=== PATIENT | male | born 1965 | race Native Hawaiian/Other Pacific Islander ===

== ENCOUNTER 2017-04-10 10:08 | Observation (INO) | payer OTHER ==
[~2017-04-10] VITALS: Ht 167.6 cm; Wt 103.5 kg
[~2017-04-10 10:08] MED LIST: ASA LO-DOSE81 MG PO; GABA300C2 PO; LISI20TA11 PO; MELOXICAM15 MG PO; NEXIUM40 MG PO; SIMV20TA2 PO
[2017-04-10 12:04] LABS: PLATELET COUNT 185 K/uL (142-355)
[2017-04-10 12:12] LABS: PARTIAL THROMBOPLASTIN TIME 24.1 SECONDS (24.5-33.6)
[2017-04-10 12:22] LABS: SODIUM 136 mmol/L (136-145)
[2017-04-10 13:22] VITALS: BP 141/88; TEMP 97; Ht 167.6 cm; Wt 103.5 kg
[2017-04-10 16:12] VITALS: BP 125/68; TEMP 97.8
[2017-04-10] MEDS ORDERED: DOXYCYC MONO100 MG PO (17:12)
[2017-04-10 20:00] VITALS: BP 116/71; TEMP 98.9
[2017-04-11] VITALS: BP 113/69; TEMP 97.7
[2017-04-11 04:00] VITALS: BP 120/72; TEMP 98.6
[2017-04-11 04:43] LABS: PLATELET COUNT 204 K/uL (142-355)
[2017-04-11 05:00] LABS: POTASSIUM 4.3 mmol/L (3.6-5.2); SODIUM 134 mmol/L (136-145)
[2017-04-11 08:00] VITALS: BP 129/74
--- NOTE | 2017-04-11 13:45 | NUR ---
IV SITE D/C'D WITH TIP INTACT AND SITE CARE DONE. D/C INSTRUCTIONS GIVEN TO PT AND AND BOTH VERBALIZE UNDERSTANDING. PT OUT VIA W/C WITH NAD PER CHELO KOLB, PCT.
== END 2017-04-11 13:30 | disposition home or self-care (01) ==
LOC: MED/SURG 10:08
PROVIDERS: Emergency Medicine; ADMIT Internal Medicine
DX: R07.89 Other chest pain (principal); I10 Essential (primary) hypertension; E78.4 Other hyperlipidemia; F41.1 Generalized anxiety disorder; K44.9 Diaphragmatic hernia without obstruction or gangrene; K21.9 Gastro-esophageal reflux disease without esophagitis
CPT/HCPCS: 36415; 80053; 82550; 82553; 83735; 84484; 85027; 85610; 85730; 93005; 94760; 96372; 96374; 99220; G0378; G0379; J2175; J3475

== ENCOUNTER → 2017-10-11 16:44 | Outpatient (CLI) | payer OTHER ==
[~2017-10-11 16:44] MED LIST changes: +DOXYCYC MONO100 MG PO
== END | disposition home or self-care (01) ==
LOC: RAD 16:44
DX: J40 Bronchitis, not specified as acute or chronic (principal)

== ENCOUNTER 2017-11-06 09:23 | Outpatient (CLI) | payer OTHER ==
[2017-11-06 09:40] LABS: PLATELET COUNT 245 K/uL (142-355)
[2017-11-06 09:58] LABS: POTASSIUM 3.7 mmol/L (3.6-5.2)
== END 2017-11-06 19:35 | disposition home or self-care (01) ==
LOC: LABW 09:23
PROVIDERS: Internal Medicine
DX: R51 Headache (principal); R42 Dizziness and giddiness
CPT/HCPCS: 36415; 80053; 83735; 85027

== ENCOUNTER 2018-07-09 10:00 | Outpatient (CLI) | payer OTHER | END 2018-07-09 19:52 | disposition home or self-care (01) | LOC: RAD 10:00 | DX: J40 Bronchitis, not specified as acute or chronic (principal) ==

== ENCOUNTER 2021-03-02 06:30 | Outpatient (CLI) | payer OTHER ==
[2021-03-02 06:58] LABS: PLATELET COUNT 188 K/uL (142-355)
[2021-03-02 07:14] LABS: POTASSIUM 3.7 mmol/L (3.6-5.2)
== END 2021-03-02 19:16 | disposition home or self-care (01) ==
LOC: LABW 06:30
PROVIDERS: ATTEND Internal Medicine
DX: M19.90 Unspecified osteoarthritis, unspecified site (principal)
CPT/HCPCS: 36415; 80053; 81374; 82550; 84550; 85027; 85652; 86038; 86140; 86430; 86431

== ENCOUNTER 2021-12-28 15:50 | Outpatient (CLI) | payer OTHER | END 2021-12-28 19:47 | disposition home or self-care (01) | LOC: LABW 15:50 | PROVIDERS: ATTEND Internal Medicine | DX: R51.9 Headache, unspecified (principal) | CPT/HCPCS: 36415; 85379 ==

== ENCOUNTER 2022-03-12 07:42 | Outpatient (CLI) | payer OTHER ==
[2022-03-12 08:09] LABS: PLATELET COUNT 198 K/uL (142-355)
[2022-03-12 08:32] LABS: POTASSIUM 4.2 mmol/L (3.6-5.2)
== END 2022-03-12 19:54 | disposition home or self-care (01) ==
LOC: LABW 07:42
PROVIDERS: ATTEND Internal Medicine
DX: Z00.00 Encounter for general adult medical examination without abnormal findings (principal); Z12.5 Encounter for screening for malignant neoplasm of prostate
CPT/HCPCS: 36415; 80053; 80061; 81002; 84153; 84439; 84443; 85027

== ENCOUNTER 2022-04-15 07:46 | Outpatient (CLI) | payer OTHER ==
[~2022-04-15 07:46] MED LIST changes: +CEFD300C2 PO; +IPRATROPIUM/ INJ; +PREDNISONE20 MG PO
== END 2022-04-15 21:34 | disposition home or self-care (01) ==
LOC: CT 07:46
PROVIDERS: ATTEND Internal Medicine
DX: R05.3 Chronic cough (principal); J42 Unspecified chronic bronchitis
CPT/HCPCS: 36415; 82565; 84520; Q9963